=== PATIENT | male | born 1955 | race Two or more races ===

== ENCOUNTER 2017-05-28 19:01 | Emergency (ER) | payer OTHER ==
[~2017-05-28] VITALS: Ht 185.4 cm; Wt 95.7 kg
--- NOTE | 2017-05-28 19:36 | NUR ---
DR PONCE AT BEDSIDE FOR EVAL.
[2017-05-28] MEDS ORDERED: ASPIRIN 325 MG TABLET ONE (19:51)
--- NOTE | 2017-05-28 19:53 | NUR ---
TECHNOLOGY SERVICES MANAGER AT BEDSIDE FOR BLOOD DRAW.
[2017-05-28 20:00] LABS: BASOPHILS # (AUTO) 0.1 /CMM (0.0-0.2); EOSINOPHILS # (AUTO) 0.1 /CMM (0.0-0.7); EOSINOPHILS % (AUTO) 1.8 % (0.0-6.0); HEMATOCRIT 46 % (39-51); HEMOGLOBIN 15.8 g/dL (13.5-17.5); LYMPHOCYTES # (AUTO) 3.9 /CMM (0.8-4.8); LYMPHOCYTES % (AUTO) 52.7 % (20.0-44.0); MEAN CORPUSCULAR HEMOGLOBIN 31 PG (26.0-33.0); MEAN CORPUSCULAR HGB CONC 34 g/dl (31.0-36.0); MEAN CORPUSCULAR VOLUME 91 fL (80-96); MONOCYTES # (AUTO) 0.6 /CMM (0.1-1.30); MONOCYTES % (AUTO) 7.5 % (2.0-12.0); NEUTROPHILS # (AUTO) 2.8 /CMM (1.8-8.9); PLATELET COUNT (AUTO) 156 /CMM (150-450); RDW COEFFICIENT OF VARIATION 12.1 (11.5-15.0); RED BLOOD CELL COUNT(AUTO) 5.09 MIL/uL (4.5-6.0); WHITE BLOOD COUNT (AUTO) 7.5 K/uL (4.3-11.0)
[2017-05-28] MEDS ORDERED: ASPIRIN 325 MG TABLET PO ONE (20:00)
[2017-05-28 20:18] LABS: CALCIUM, SERUM 8.3 mg/dL (8.5-10.1); CARBON DIOXIDE 29 mmol/L (21-32); CHLORIDE 104 mmol/L (98-107); GLUCOSE 91 mg/dL (74-106); SODIUM SERUM 138 mmol/L (136-145); UREA NITROGEN, BLOOD 16 mg/dL (7-18)
[2017-05-28 20:26] LABS: TROPONIN I < 0.017 ng/mL (0.00-0.056)
--- NOTE | 2017-05-28 21:24 | NUR ---
Patient discharged to home in stable condition. Written and verbal after care instructions given. Patient verbalizes understanding of instruction.
[2017-05-28 21:25] VITALS: BP 158/107
[2017-05-29 00:11] LABS: EOSINOPHILS % (MANUAL) 2 % (0-4); LYMPHOCYTES % (MANUAL) 46 % (16-48); MONOCYTES % (MANUAL) 3 % (0-11.0); NEUTROPHILS % (MANUAL) 49 (42-76)
== END 2017-05-28 21:26 | disposition home or self-care (01) ==
LOC: ER 19:02
DX: R51 Headache (principal); R42 Dizziness and giddiness; I10 Essential (primary) hypertension
CPT/HCPCS: 36415; 71010; 80048; 84484; 85025; 93005; 99285; A4606; Z7610

== ENCOUNTER 2018-02-07 05:34 | Inpatient (IN) | payer OTHER ==
[~2018-02-07] VITALS: Ht 182.9 cm; Wt 95.7 kg
--- NOTE | 2018-02-07 05:45 | NUR ---
PT BIBFAMILY C/O NVD, BODY PAIN AND FEVER X 1 DAY. PT AOX3 RR EVEN AND UNLABORED. NO SOB NOTED. NAD NOTED. NO NVD AT THIS TIME. PT GOWNED AND PLACED ON MONITOR. DR. ROBERSON AT BEDSIDE FOR EVAL.
[2018-02-07] MEDS ORDERED: KETOROLAC TROMETHAMINE 15 MG/ML VIAL ONE (05:51)
[2018-02-07] MEDS ORDERED: ONDANSETRON HCL/PF 4 MG/2 ML VIAL ONE (05:51)
[2018-02-07] MEDS ORDERED: KETOROLAC TROMETHAMINE INJ 30 MG/ML VIAL IV ONE (06:00)
[2018-02-07] MEDS ORDERED: IV NS 0.9% 1,000 ML BAG IV ONE ×2 (06:00→07:00)
[2018-02-07] MEDS ORDERED: ONDANSETRON HCL/PF 4 MG/2 ML VIAL IVP ONE (06:00)
[2018-02-07 06:22] LABS: ALBUMIN 4.1 g/dL (3.4-5.0); BILIRUBIN,DIRECT 0.2 mg/dL (0.0-0.2); BILIRUBIN,TOTAL 1.5 mg/dL (0.2-1.0); CALCIUM, SERUM 8.5 mg/dL (8.5-10.1); CREATININE 1.2 mg/dL (0.6-1.3); POTASSIUM 3.6 mmol/L (3.5-5.1); TOTAL PROTEIN, SERUM 7.6 g/dL (6.4-8.2)
--- NOTE | 2018-02-07 06:22 | NUR ---
DR. COLEMAN AT BEDSIDE FOR EVAL.
--- NOTE | 2018-02-07 07:00 | NUR ---
PER RADIOLOGY, TO PAGED EBER.
--- NOTE | 2018-02-07 07:02 | NUR ---
DR. COLEMAN AT BEDSIDE SPEAKING TO PT REGARDING POC.
--- NOTE | 2018-02-07 07:12 | NUR ---
REPORT GIVEN TO JANY GALVAN FOR SHAHZAD.
[2018-02-07 07:19] LABS: BASOPHILS % (AUTO) 0.1 % (0.0-2.0); EOSINOPHILS % (AUTO) 0.3 % (0.0-6.0); HEMATOCRIT 48 % (39-51); HEMOGLOBIN 16.7 g/dL (13.5-17.5); LYMPHOCYTES % (AUTO) 8.3 % (20.0-44.0); MEAN CORPUSCULAR VOLUME 89 fL (80-96); MONOCYTES # (AUTO) 0.8 /CMM (0.1-1.30); MONOCYTES % (AUTO) 6.8 % (2.0-12.0); NEUTROPHILS # (AUTO) 10.4 /CMM (1.8-8.9); NEUTROPHILS % (AUTO) 84.5 % (43.0-81.0); PLATELET COUNT (AUTO) 124 /CMM (150-450); RDW COEFFICIENT OF VARIATION 13.4 (11.5-15.0); RED BLOOD CELL COUNT(AUTO) 5.36 MIL/uL (4.5-6.0); WHITE BLOOD COUNT (AUTO) 12.4 K/uL (4.3-11.0)
[2018-02-07 07:20] LABS: MEAN CORPUSCULAR HGB CONC 35 g/dl (31.0-36.0)
--- NOTE | 2018-02-07 07:55 | NUR ---
US TECH AT BS.
--- NOTE | 2018-02-07 08:13 | NUR ---
DR COLEMAN AT FOR AN UPDATE AND RE-EVAL.
--- NOTE | 2018-02-07 08:25 | NUR ---
Paged Chele Messer for MS bed
[2018-02-07] MEDS ORDERED: FAMOTIDINE/PF INJ 40 MG in IV D5W 50 ML IV ONE (08:30)
[2018-02-07] MEDS ORDERED: IV NS 0.9% 1,000 ML IV ONE (08:30)
[2018-02-07] MEDS ORDERED: LISI-607 PO (08:33)
[2018-02-07] MEDS ORDERED: IOHEXOL-300 100 ML VIAL IV ONE (08:43)
[2018-02-07] MEDS ORDERED: CT SWABBABLE VALVE TRANS SET 1 EA INFUS.SET MC ONE (08:43)
[2018-02-07] MEDS ORDERED: IV NS 0.9% 500 ML IV ONE (08:44)
--- NOTE | 2018-02-07 08:47 | NUR ---
PT TAKEN TO CT.
--- NOTE | 2018-02-07 09:00 | NUR ---
REPORT GIVEN TO JANY DAY FOR SHAHZAD MS [id number]
--- NOTE | 2018-02-07 09:43 | NUR ---
MS BREAD OVEN OPERATOR NOTES RECEIVED PT FROM ER NURSE IN STABLE CONDITION. PT WILL BE ADMITTED UNDER DR. SHINE FOR PANCREATITIS. PT IS A/O X4. NO SOB OR ACUTE SIGNS OF DISTRESS NOTED. BREATHING IS EVEN AND UNLABORED. PT IS SATING WELL ON RA. BP AND HR ARE ELEVATED. (159/105: 118). MADE AWARE. NO NEW ORDERS AT THIS TIME. IV TO LEFT AC NOTED TO BE PATENT AND INTACT. NO REDNESS OR SIGNS OF INFILTRATION NOTED. PT ORIENTED TO HIS ROOM AND USE OF CALL LIGHT. BELONGINGS REVIEWED WITH LICENSED THERAPIST. BED IN LOW LOCKED POSITION, SIDE RAILS UP X3, CALL LIGHT WITHIN REACH. WILL CONTINUE TO MONITOR
[2018-02-07] MEDS ORDERED: ONDANSETRON HCL/PF 4 MG/2 ML VIAL IV PRN (10:00)
[2018-02-07] MEDS ORDERED: IV NS 0.9% 1,000 ML BAG IV PRN (10:00)
[2018-02-07] MEDS ORDERED: MORPHINE SULFATE INJ 2 MG/ML DISP.SYRIN IV PRN ×2 (10:00→14:00)
[2018-02-07] MEDS ORDERED: ACETAMINOPHEN 325 MG TABLET PO PRN (10:00)
[2018-02-07] MEDS ORDERED: IV NS 0.9% 1,000 ML IV PRN (10:30)
[2018-02-07] MEDS: PANTOPRAZOLE 40 MG VIAL IV SCH (10:39)
[2018-02-07] MEDS: IV NS 0.9% 1,000 ML IV PRN ×2 (10:40→17:38)
--- NOTE | 2018-02-07 11:31 | NUR ---
MS RN NOTES: PAIN MANAGEMENT/ORDERS MORPHINE 2MG IS INEFFECTIVE FOR PT'S CURRENT PAIN. DR SHINE AT BEDSIDE AND MADE AWARE. SHE GAVE A VERBAL ORDER TO INCREASE HIS DOSE TO 4MG IV Q4HR.
[2018-02-07] MEDS: PIPERACILLIN /TAZOBACTAM 3.375 G in IV D5W 50 ML IV SCH ×2 (11:52→17:37)
[2018-02-07] MEDS: LISINOPRIL (5MG) 5 MG TABLET PO SCH (13:17)
[2018-02-07 15:59] VITALS: BP 97/51
--- NOTE | 2018-02-07 17:15 | NUR ---
MS RN NOTES: TEMP MANAGEMENT PT HAD A TEMPERATURE OF 100.5. COOLING MEASURES INITIATED ACETAMINOPHEN WAS PREVIOUSLY ADMINISTERED. TEMP WAS ASSESSED AFTER INTERVENTIONS AN IS NOW 98.7
[2018-02-07 18:10] LABS: AMYLASE 45 U/L (25-115); LIPASE 114 U/L (73-393)
--- NOTE | 2018-02-07 18:30 | NUR ---
MS RN CLOSING NOTES PT REMAINS IN STABLE CONDITION. ALL NEEDS WERE MET DURING SHIFT AND ORDERS CARRIED OUT ACCORDINGLY. ALL DUE MEDS GIVEN . PT WAS SWITCHED TO CLEAR LIQUID DIET BY GI CARDIOVASCULAR PHYSICIAN ASSISTANT. DIETARY CALLED FOR LATE DINER ORDER. VITALS STABLE AT THIS TIME. HE DENIES ANY PAIN WELL. IV REMAINS PATENT AND INTACT. PT TOLERATING NS INFUSION WELL. NO EPISODES OF N/V, OR DIARRHEA SINCE ADMISSION. UNABLE TO COLLECT CHENG SAMPLES PT HAS BEEN UNABLE TO HAVE A BM. SAFETY MEASURES REMAIN IN PLACE. AT BEDSIDE. WILL ENDORSE TO NIGHTSHIFT NURSE FOR SHAHZAD
--- NOTE | 2018-02-07 19:30 | NUR ---
MSRN FULLY AWAKE, AT BEDSIDE, PAINFREE FOR NOW. PRESENT IVF INFUSING WELL VIA LEFT AC 18 GAUGE. ALL NEEDS ATTENDED. INSTRUCTED NEED FOR STOOL SPECIMEN, APPEARS TO UNDERSTAND. INSTRUCTED TO CALL STAFF FOR ANY ASSISTANCE OR DISCOMFORTS, CALL LIGHT REVIEWED WITH PATIENT. CLOSELY WATCHED.
--- NOTE | 2018-02-07 20:00 | NUR ---
MSRN SEEN BY DR. AZAR, LABS ORDERED.
[2018-02-07 20:08] VITALS: BP 133/81
[2018-02-07 20:31] VITALS: BP 133/81
[2018-02-08] MEDS: PIPERACILLIN /TAZOBACTAM 3.375 G in IV D5W 50 ML IV SCH ×3 (00:03→12:14)
--- NOTE | 2018-02-08 00:09 | NUR ---
MSJANY DIAZSYN ADMINISTERED RECHECKED TEMP. 98.2 OF THIS TIME. CONTINUED MONITORING.
[2018-02-08] MEDS: IV NS 0.9% 1,000 ML IV PRN (03:48)
--- NOTE | 2018-02-08 04:09 | NUR ---
CHRISTIN ESQUIVEL, VOIDED FREELY, NO BM YET. EAGER TO GO HOME, AWARE OF LAB DRAW IN EARLY AM.
--- NOTE | 2018-02-08 06:45 | NUR ---
CHRISTIN NEVAREZ ON PROGRESS, NO COMPLAINTS OF PAIN. REMAINS AFEBRILE. ALL NEEDS ATTENDED.
--- NOTE | 2018-02-08 07:23 | NUR ---
MS RN OPENING NOTES RECEIVED PT FROM NIGHTSHIFT NURSE IN STABLE CONDITION. PT IS A/O X4. NO SOB OR SIGNS OF DISTRESS NOTED. BREATHING IS EVEN AD UNLABORED. N O SOB OR SIGNS OF DISTRESS NOTED. HE DENIES ANY PAIN AT THIS TIME. IV TO RIGHT AC NOTED TO BE PATENT AND INTACT. NO REDNESS OR SIGNS OF INFILTRATION NOTED. PT TOLERATING NS INFUSION WELL. BED IN LOW LOCKED POSITION, SIDE RAILS X2, CALL LIGHT WITHIN REACH. WILL CONTINUE TO MONITOR
[2018-02-08 07:51] LABS: BASOPHILS % (AUTO) 0.5 % (0.0-2.0); EOSINOPHILS % (AUTO) 2.7 % (0.0-6.0); HEMATOCRIT 40 % (39-51); HEMOGLOBIN 13.8 g/dL (13.5-17.5); LYMPHOCYTES # (AUTO) 2.3 /CMM (0.8-4.8); LYMPHOCYTES % (AUTO) 25.7 % (20.0-44.0); MEAN CORPUSCULAR HGB CONC 35 g/dl (31.0-36.0); MEAN CORPUSCULAR VOLUME 88 fL (80-96); MONOCYTES # (AUTO) 0.7 /CMM (0.1-1.30); NEUTROPHILS # (AUTO) 5.7 /CMM (1.8-8.9); NEUTROPHILS % (AUTO) 63.1 % (43.0-81.0); PLATELET COUNT (AUTO) 100 /CMM (150-450); RDW COEFFICIENT OF VARIATION 13.3 (11.5-15.0)
[2018-02-08 08:00] VITALS: BP 140/93
[2018-02-08 08:07] LABS: BILIRUBIN,TOTAL 2.5 mg/dL (0.2-1.0); CALCIUM, SERUM 7.2 mg/dL (8.5-10.1); CREATININE 1.1 mg/dL (0.6-1.3); MAGNESIUM 1.5 mg/dL (1.8-2.4); PHOSPHORUS 2.3 mg/dL (2.5-4.9); POTASSIUM 3.4 mmol/L (3.5-5.1); TOTAL PROTEIN, SERUM 6.1 g/dL (6.4-8.2)
[2018-02-08 08:23] LABS: FREE PSA 0.23 ng/mL (0.00-45); PROSTATE SPECIFIC ANTIGEN SCR 1.61 ng/mL (0.00-4.00); THYROID STIMULATING HORMONE 0.889 uIU/mL (0.358-3.74); URIC ACID 4.2 mg/dL (2.6-7.2)
[2018-02-08 08:59] VITALS: BP 147/93
[2018-02-08] MEDS: LISINOPRIL (5MG) 5 MG TABLET PO SCH (08:59)
[2018-02-08] MEDS: PANTOPRAZOLE 40 MG VIAL IV SCH (09:00)
[2018-02-08] MEDS ORDERED: POTASSIUM CHLORIDE 20 MEQ TAB.PRT.SR PO SCH (09:30)
[2018-02-08] MEDS: Magnesium 1GM/D5W 100ML PREMIX 100 ML IV SCH ×2 (09:38→10:47)
[2018-02-08] MEDS ORDERED: K PHOS NEUTRAL 250 MG TABLET PO ONE (13:30)
--- NOTE | 2018-02-08 14:26 | NUR ---
MS SAFETY INSTRUCTOR NOTES PT WAS DISCHARGED HOME IN STABLE CONDITION. ALL NEEDS WERE MET DURING SHIFT AND ORDERS CARRIED OUT ACCORDINGLY. ALL DUE MEDS GIVEN. VITALS STABLE PRIOR TO D/C. IV SUCCESSFULLY REMOVED WITH NO COMPLICATIONS. DISCHARGE INSTRUCTIONS GIVEN TO PT AND FAMILY USING EXIT CARE MATERIALS. PT SIGNED ALL D/C FORMS INCLUDING BELONGINGS LIST. HE LEFT WITH ALL OTHER BELONGINGS AND WAS SAFELY ESCORTED TO THE MAIN LOBBY AND LEFT VIA PRIVATE VEHICLE.
[2018-02-08 15:50] LABS: OCCULT BLOOD STOOL NEGATIVE (NEGATIVE)
[2018-02-09 08:10] LABS: CARBOHYDRATE AG 19-9 6 U/mL (0-35)
[2018-02-09 12:13] LABS: *SPE A/G RATIO 1.2 (0.7-1.7); *SPE ALBUMIN 3.1 g/dL (2.9-4.4); *SPE ALPHA-1-GLOBULIN 0.3 g/dL (0.0-0.4); *SPE ALPHA-2-GLOBULIN 0.6 g/dL (0.4-1.0); *SPE BETA GLOBULIN 0.7 g/dL (0.7-1.3); *SPE GLOBULIN, TOTAL 2.5 g/dL (2.2-3.9); *SPE M-SPIKE Not Observed g/dL (Not Observed); *SPEGAMMA GLOBULIN 0.9 g/dL (0.4-1.8)
== END 2018-02-08 14:30 | disposition home or self-care (01) | DRG 282 ==
LOC: ER 05:35 → MED 09:14
PROVIDERS: ADMIT Internal Medicine Nephrology; ATTEND Internal Medicine Nephrology
DX: K85.90 Acute pancreatitis without necrosis or infection, unspecified (principal); D69.6 Thrombocytopenia, unspecified; I10 Essential (primary) hypertension; K52.9 Noninfective gastroenteritis and colitis, unspecified; D72.829 Elevated white blood cell count, unspecified; M89.9 Disorder of bone, unspecified
CPT/HCPCS: 36415; 76700-TC; 80048-TC; 80053-TC; 80076-TC; 82150-TC; 82272-TC; 82306; 82378; 82746; 83615-TC; 83690-TC; 83735-TC; 84100-TC; 84153-TC; 84154-TC; 84155; 84165; 84443-TC; 84550-TC; 85025-TC; 86301; 87045-TC; 87081-TC; 87177; 87209; 89055; A4606; C9113; J1885; J2270; J2405; J2543; J3475; J3490; J7030; J7040; J7060; Q9967; Z7610

== ENCOUNTER 2018-10-18 23:39 | Emergency (ER) | payer OTHER ==
[~2018-10-18] VITALS: Ht 185.4 cm; Wt 96.2 kg
[~2018-10-18 23:39] MED LIST: LISI-607 PO
[2018-10-18 23:50] VITALS: BP 142/95
[2018-10-19] MEDS ORDERED: IBUPROFEN 600 MG TABLET PO ONE ×2 (00:30→00:42)
== END 2018-10-19 01:10 | disposition home or self-care (01) ==
LOC: ER 23:41
DX: J06.9 Acute upper respiratory infection, unspecified (principal); I10 Essential (primary) hypertension; Z79.899 Other long term (current) drug therapy
CPT/HCPCS: 87400

== ENCOUNTER 2021-02-11 07:59 | Emergency (ER) | payer MEDICARE, OTHER ==
[~2021-02-11] VITALS: Ht 185.4 cm; Wt 93.4 kg
[~2021-02-11 07:59] MED LIST changes: -LISI-607 PO; +LISI-768 PO
--- NOTE | 2021-02-11 08:10 | NUR ---
c/o lower back pain x 1 week, 10/10 pain scale, denies injury. Patient unable to sit still. Accompanied by .
[2021-02-11] MEDS ORDERED: KETOROLAC TROMETHAMINE INJ 60 MG/2 ML VIAL IM ONE ×2 (08:20→08:30)
[2021-02-11] MEDS ORDERED: predniSONE 20 MG TABLET PO ONE (08:30)
--- NOTE | 2021-02-11 08:33 | NUR ---
PATIENT TAKEN TO CT.
[2021-02-11] MEDS ORDERED: PRED20TA PO (09:21)
[2021-02-11] MEDS ORDERED: HYDR-3972 PO (09:21)
--- NOTE | 2021-02-11 09:34 | NUR ---
PATIENT'S PAIN IMPROVED. A/OX4, BREATHING EVEN AND UNLABORED, NO SOB NOTED. AMBULATORY WITH STEADY GAIT. Patient discharged to home in stable condition. Written and verbal after care instructions given. Patient verbalizes understanding of instruction.
[2021-02-11 09:36] VITALS: BP 166/106
== END 2021-02-11 09:36 | disposition home or self-care (01) ==
LOC: ER 07:59
DX: M54.16 Radiculopathy, lumbar region (principal); I10 Essential (primary) hypertension
CPT/HCPCS: 72131; 96372; 99284; J1885; J7512